=== PATIENT | male | born 1995 | race Two or more races ===

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

== ENCOUNTER 2017-03-09 13:33 | Emergency (ER) | payer OTHER, MEDICAID ==
[~2017-03-09] VITALS: Ht 177.8 cm; Wt 77.1 kg
[2017-03-09 14:50] VITALS: BP 135/74
--- NOTE | 2017-03-09 14:51 | NUR ---
Patient discharged to home in stable conditon. Written and verbal after care instructions given. Patient verbalizes understanding of instructions.
== END 2017-03-09 14:59 | disposition home or self-care (01) ==
LOC: ER 13:33
DX: J02.9 Acute pharyngitis, unspecified (principal)
CPT/HCPCS: 71010; A4663

== ENCOUNTER 2017-07-18 21:37 | Emergency (ER) | payer MEDICAID ==
[~2017-07-18] VITALS: Ht 175.3 cm; Wt 74.8 kg
--- NOTE | 2017-07-18 22:30 | NUR ---
PT C/O L KNEE PAIN X3 WEEKS AFTER PLAYING BASKETBALL. pT STATES HE HAD GONE TO [employer] TO TREAT KNEE 1 WEEK AGO, BUT IT HAS CONTINUED TO BE PAINFUL.
--- NOTE | 2017-07-18 22:38 | NUR ---
DR ANNE MC MD AT BEDSIDE FOR MSE.
--- NOTE | 2017-07-18 23:00 | NUR ---
Patient discharged to home in stable conditon. Written and verbal after care instructions given. Patient verbalizes understanding of instructions. Pt given education on proper use of crutches. Pt took all personal belongings. VSS.
[2017-07-19 01:34] VITALS: BP 114/68
== END 2017-07-19 01:35 | disposition home or self-care (01) ==
LOC: ER 21:37
DX: S89.92XA Unspecified injury of left lower leg, initial encounter (principal); X58.XXXA Exposure to other specified factors, initial encounter; Y93.89 Activity, other specified; Y92.89 Other specified places as the place of occurrence of the external cause; Y99.8 Other external cause status
CPT/HCPCS: A4663

== ENCOUNTER 2017-11-02 01:40 | Emergency (ER) | payer SELFPAY ==
--- NOTE | 2017-11-02 02:27 | NUR ---
PATIENT DID NOT WANT TO BE SEEN BY ERMD. PATIENT WAS NOT TRIAGED OR SEEN BY ERMD
== END 2017-11-02 02:29 | disposition left against medical advice (07) ==
LOC: ER 01:43
DX: Z53.21 Procedure and treatment not carried out due to patient leaving prior to being seen by health care provider (principal)